=== PATIENT | male | born 1950 | race Hispanic/Latino ===

== ENCOUNTER → 2020-06-08 | Outpatient (CLI) | payer OTHER | END | disposition home or self-care (01) | LOC: RAH 12:32 | PROVIDERS: ATTEND Internal Medicine | DX: N28.1 Cyst of kidney, acquired (principal); R53.0 Neoplastic (malignant) related fatigue | CPT/HCPCS: 76770 ==

== ENCOUNTER 2020-09-17 09:44 | Day surgery (SDC) | payer OTHER ==
[2020-09-11 12:38] LABS: BASOPHILS % (AUTO) 0.4 % (0.0-5.0); EOSINOPHILS % (AUTO) 2.7 % (0.0-8.0); HEMATOCRIT 35.1 % (42-54); LYMPHOCYTES % (AUTO) 16.6 % (21.0-51.0); MEAN CORPUSCULAR HEMOGLOBIN 20.4 pg (27.0-33.0); MEAN CORPUSCULAR HGB CONC 27.4 g/dL (32.0-36.0); MEAN CORPUSCULAR VOLUME 74.7 fL (79-99); NEUTROPHILS % (AUTO) 70.9 % (40.0-77.0); PLATELET COUNT (AUTO) 168 K/uL (130-400); RED CELL DISTRIBUTION WIDTH 15.1 % (11.0-15.5)
[2020-09-11 12:49] LABS: CREATININE 1.3 mg/dL (0.5-1.5); POTASSIUM 4.6 mmol/L (3.5-5.1)
[2020-09-11 12:49] LABS: APPEARANCE,URINE Clear (CLEAR); BILIRUBIN,URINE Small (NEGATIVE); COLOR,URINE Dark Yellow (YELLOW); GLUCOSE, URINE (UA) >=1000 mg/dL (NEGATIVE); KETONES,URINE Trace mg/dL (NEGATIVE); LEUKOCYTE ESTERASE ,URINE Negative (NEGATIVE); NITRATE,URINE Negative (NEGATIVE); OCCULT BLOOD,URINE Trace (NEGATIVE); PROTEIN,URINE >=1000 mg/dL (NEGATIVE)
[2020-09-11 13:43] LABS: BACTERIA,URINE Few /HPF (None Seen); RBC,URINE 0-1 /HPF (0-1); SQUAMOUS EPITHELIAL CELL,UR 0-2 /HPF (0-2); WBC,URINE 0-1 /HPF (0-1)
[2020-09-16 10:11] VITALS: BP 124/66
[~2020-09-17] VITALS: Ht 180.3 cm; Wt 103.0 kg
[2020-09-17] VITALS (23 sets, daily range): BP systolic 138–187; BP diastolic 70–97
[~2020-09-17 09:44] MED LIST: CEFAZOLIN SODIUM 1 GM VIAL IVP ONE; CHOL100046 PO; INSU100I24 SQ; LOSA25TA41 PO; METF-446 PO; ROSU20TA31 PO; SEMA1PEN3 SQ; TAMS-1 PO
[2020-09-17] MEDS ORDERED: NACL 0.9% 1000ML 1,000 ML IV ONE (10:37)
[2020-09-17] MEDS ORDERED: CEFAZOLIN SODIUM 1 GM VIAL ONE (10:37)
[2020-09-17] MEDS ORDERED: MIDAZOLAM HCL 1 MG/ML 2ML VIAL ONE (14:56)
[2020-09-17] MEDS ORDERED: PROPOFOL 10 MG/ML 20ML VIAL IV ONE ×2 (14:56→15:10)
[2020-09-17] MEDS ORDERED: LIDOCAINE PF 100MG/5ML (2%) SYRINGE 5ML ONE (14:56)
[2020-09-17] MEDS ORDERED: ROCURONIUM 10MG/1ML SYR 10 MG/ML ML ONE (14:56)
[2020-09-17] MEDS ORDERED: FENTANYL CITRATE PF 50 MCG/1 ML 5ML AMP IV ONE (14:57)
[2020-09-17] MEDS ORDERED: BACITRACIN 28.4 GM OINT TP ONE (15:55)
[2020-09-17] MEDS ORDERED: BUPIVACAINE/PF 0.25% 30ML VIAL IJ ONE (15:55)
[2020-09-17] MEDS ORDERED: NEOSTIGMINE 5MG/5ML SYR IV ONE (15:57)
[2020-09-17] MEDS ORDERED: GLYCOPYRROLATE 1 MG/5 ML SYRINGE ONE (15:58)
[2020-09-17] MEDS ORDERED: HYDRALAZINE 20MG/ML VIAL ONE (17:07)
== END 2020-09-17 18:20 | disposition home or self-care (01) ==
LOC: DAH 09:44
PROVIDERS: ATTEND Urology
DX: N47.1 Phimosis (principal); N40.1 Benign prostatic hyperplasia with lower urinary tract symptoms; I10 Essential (primary) hypertension; E11.9 Type 2 diabetes mellitus without complications; F17.210 Nicotine dependence, cigarettes, uncomplicated; Z86.73 Personal history of transient ischemic attack (TIA), and cerebral infarction without residual deficits; Z79.899 Other long term (current) drug therapy; Z20.822 Contact with and (suspected) exposure to COVID-19
CPT/HCPCS: 36415; 52000; 54161; 71045; 80048; 81001; 82948 ×2; 85025; 87088; 87635; 93005; A4215; A4221; A4222; A4223; A4358; A4600; A4663; C1769; C9803; J0360; J0690; J2001; J2250; J2704 ×2; J2710; J3010; J3490 ×2; J7030; J7120

== ENCOUNTER → 2021-05-27 | Outpatient (CLI) | payer OTHER ==
[~2021-05-27] MED LIST changes: -CEFAZOLIN SODIUM 1 GM VIAL IVP ONE
== END | disposition home or self-care (01) ==
LOC: RAH 07:50
PROVIDERS: ATTEND Internal Medicine Gastroenterology
DX: K80.20 Calculus of gallbladder without cholecystitis without obstruction (principal); K74.60 Unspecified cirrhosis of liver; N28.1 Cyst of kidney, acquired; R16.1 Splenomegaly, not elsewhere classified
CPT/HCPCS: 76700; 93975

== ENCOUNTER → 2023-08-16 | Outpatient (CLI) | payer MEDICARE ==
[~2023-08-16] MED LIST changes: -ROSU20TA31 PO; +ROSU20TA73 PO
[2023-08-16 12:20] LABS: BASOPHILS # (AUTO) 0.07 K/uL (0.00-0.20); BASOPHILS % (AUTO) 0.9 % (0.0-5.0); EOSINOPHILS # (AUTO) 0.41 K/uL (0.00-0.70); EOSINOPHILS % (AUTO) 5.2 % (0.0-8.0); HEMATOCRIT 45.8 % (42-54); IMMATURE GRANULOCYTE ABSOLUTE 0.04 K/uL (0-1); LYMPHOCYTES # (AUTO) 1.5 K/uL (1.0-4.8); LYMPHOCYTES % (AUTO) 18.9 % (21.0-51.0); MEAN CORPUSCULAR HEMOGLOBIN 27.7 pg (27.0-33.0); MEAN CORPUSCULAR VOLUME 89.5 fL (79-99); MONOCYTES # (AUTO) 0.6 K/uL (0.1-1.0); NEUTROPHILS # (AUTO) 5.2 K/uL (1.8-7.7); NEUTROPHILS % (AUTO) 66.5 % (40.0-77.0); PLATELET COUNT (AUTO) 170 K/uL (130-400); RED BLOOD CELL COUNT(AUTO) 5.12 MIL/uL (4.50-6.20); RED CELL DISTRIBUTION WIDTH 14.1 % (11.0-15.5); WHITE BLOOD COUNT (AUTO) 7.9 K/uL (4.8-10.8)
[2023-08-16 12:45] LABS: B-TYPE NATRIURETIC PEPTIDE 41 pg/mL (0-100)
[2023-08-16 12:48] LABS: ALBUMIN 2.2 g/dL (3.5-5.0); BILIRUBIN,TOTAL 0.5 mg/dL (0.2-1.0); CREATININE 2.4 mg/dL (0.5-1.3); POTASSIUM 4.6 mmol/L (3.5-5.1)
== END | disposition home or self-care (01) ==
LOC: LAB 09:40
PROVIDERS: ATTEND Internal Medicine Cardiovascular Disease
DX: R06.00 Dyspnea, unspecified (principal); R20.2 Paresthesia of skin; G47.33 Obstructive sleep apnea (adult) (pediatric); R60.9 Edema, unspecified; E11.9 Type 2 diabetes mellitus without complications
CPT/HCPCS: 36415; 80053; 80061; 83880; 85025